=== PATIENT | female | born 1995 | race African-American/Black ===

== ENCOUNTER 2017-08-08 13:28 | Outpatient (CLI) | payer OTHER ==
[2017-08-08 14:03] LABS: Alanine Aminotransferase 12 units/L (7-56); Albumin 4.1 g/dL (3.9-5); BUN/Creatinine Ratio 26; Blood Urea Nitrogen 13 mg/dL (7-17); Calcium 8.9 mg/dL (8.4-10.2); Hemolysis Index 5
== END 2017-08-08 13:29 | disposition home or self-care (01) ==
LOC: LAB 13:28
PROVIDERS: ATTEND Surgery
DX: M79.631 Pain in right forearm (principal)
CPT/HCPCS: 36415; 80053

== ENCOUNTER 2017-08-21 10:58 | Day surgery (SDC) | payer OTHER ==
[~2017-08-21 10:58] MED LIST: MARCAINE 0.5% 0 ML INFILTRATI ONE; METHYLENE BLUE ONE; XYLOCAINE 1% 20 mL ONE
[2017-08-21 11:29] VITALS: BP 110/64
[2017-08-21] MEDS ORDERED: XYLOCAINE 1% 20 mL INFILTRATI ONE (13:10)
--- NOTE | 2017-08-24 20:40 | Operative Report ---
DESCRIPTION OF PROCEDURE: This patient was seen on 08/21/2017 to have a surgery performed on her. She had a lump about 2 x 2 x 1 cm located in the posterior lateral aspect of left forearm. It looked like a lipoma to me, firm. PROCEDURE IN DETAIL: This was done under local anesthesia using for that purpose 1% Xylocaine and then an incision was performed longitudinal deep subcutaneous tissue. I was able to remove it in toto. Then, the wound was closed in 1 layer using for that purpose 4-0 Vicryl interruptedly. A bandage was then applied. The patient was then discharged. JOB# [id number] OMID/PEDRO LUIS
--- NOTE | 2017-08-25 01:43 | Discharge Summary ---
FINAL DIAGNOSIS: Pending final pathology report, most probably lipoma, left forearm. HISTORY OF PRESENT ILLNESS: This patient was seen in my office for the above and then she was seen in the minor procedure room in the hospital for that. PHYSICAL EXAMINATION: GENERAL: She is a healthy, young oriental female. She is in no distress. HEAD AND NECK: Negative. CHEST: Clear. HEART: Sound normal. ABDOMEN: Flat, soft, benign. EXTREMITIES: Showed no edema. There is a mass that looks like a firm ? lipoma in the posterior left aspect of her left forearm. EMERGENCY DEPARTMENT COURSE: So, she underwent removing this under local anesthesia and then she was discharged home, to be seen in my office in 10 days. She may take excess strength Tylenol for pain. JOB# [id number] OMID/PEDRO LUIS
== END 2017-08-21 13:30 | disposition home or self-care (01) ==
LOC: OR 10:58
PROVIDERS: ATTEND Surgery
DX: D17.22 Benign lipomatous neoplasm of skin and subcutaneous tissue of left arm (principal)
CPT/HCPCS: 88304; 88307; Q9968

== ENCOUNTER 2020-11-17 10:54 | Emergency (ER) | payer OTHER ==
[2020-11-17 12:07] VITALS: BP 103/66
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
[2020-11-17 14:41] LABS: HCG Qualitative,Urine Negative (Negative)
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
== END 2020-11-17 15:00 | disposition home or self-care (01) ==
LOC: ED 10:54
DX: S39.012A Strain of muscle, fascia and tendon of lower back, initial encounter (principal); S16.1XXA Strain of muscle, fascia and tendon at neck level, initial encounter; S39.011A Strain of muscle, fascia and tendon of abdomen, initial encounter; Z88.0 Allergy status to penicillin; Z79.899 Other long term (current) drug therapy; V87.7XXA Person injured in collision between other specified motor vehicles (traffic), initial encounter; Y93.89 Activity, other specified; Y92.488 Other paved roadways as the place of occurrence of the external cause; Y99.8 Other external cause status
CPT/HCPCS: 72125; 74176; 81025; 99283

== ENCOUNTER 2021-06-12 03:27 | Emergency (ER) | payer OTHER ==
[2021-06-12] MEDS ORDERED: ACETAMINOPHEN 500 MG TAB PO ONE (04:47)
[2021-06-12] MEDS ORDERED: IBUPROFEN 600 MG TAB PO ONE (04:47)
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
[2021-06-12 08:24] VITALS: BP 127/85
== END 2021-06-12 08:23 | disposition home or self-care (01) ==
LOC: ED 03:27
DX: M54.2 Cervicalgia (principal); R07.9 Chest pain, unspecified; Z88.0 Allergy status to penicillin; V49.50XA Passenger injured in collision with unspecified motor vehicles in traffic accident, initial encounter; Y93.89 Activity, other specified; Y92.89 Other specified places as the place of occurrence of the external cause; Y99.8 Other external cause status
CPT/HCPCS: 71046; 72125; 99284